=== PATIENT | female | born 1995 | race American Indian/Alaskan Native ===

== ENCOUNTER 2022-05-29 23:56 | Emergency (ER) | payer SELFPAY | END 2022-05-30 01:25 | disposition home or self-care (01) | LOC: JD.ED 23:56 | DX: S01.01XA Laceration without foreign body of scalp, initial encounter (principal); Y04.2XXA Assault by strike against or bumped into by another person, initial encounter | CPT/HCPCS: 70450; 70450-26; 99284 ==

== ENCOUNTER 2024-08-12 22:19 | Emergency (ER) | payer BC ==
[2024-08-13] MEDS: Naproxen 500 MG Tab PO ONE (00:28)
== END 2024-08-13 00:41 | disposition home or self-care (01) ==
LOC: JD.ED 22:19
DX: H66.91 Otitis media, unspecified, right ear (principal); J06.9 Acute upper respiratory infection, unspecified; Z79.899 Other long term (current) drug therapy
CPT/HCPCS: 87428-QW; 99283; A9270-GY

== ENCOUNTER 2024-08-18 12:14 | Emergency (ER) | payer BC ==
[2024-08-18 13:23] LABS: HEMATOCRIT 37.1 % (37.0-47.0); HEMOGLOBIN 12.6 gm/dl (12.0-16.0); MEAN CORPUSCULAR HEMOGLOBIN 27.7 pg (28.0-32.0); MEAN CORPUSCULAR VOLUME 81.5 fl (83.0-99.0); MEAN PLATELET VOLUME 10.4 fl (9.4-12.3); PLATELET COUNT,PLT 387 K/mm3 (150-400); RED BLOOD CELL COUNT 4.55 M/mm3 (4.10-5.30); WHITE BLOOD CELL COUNT,WBC 10.83 K/mm3 (3.9-11.3)
[2024-08-18 13:37] LABS: A/G RATIO 0.9 (1-2); ALANINE AMINOTRANSFERASE,ALT 36 U/L (14-59); ALBUMIN 3.8 g/dl (3.4-5.0); ALKALINE PHOSPHATASE 111 U/L (46-116); ANION GAP 12.9 (5-15); ASPARTATE AMNIOTRANSFERASE,AST 16 U/L (15-37); BILIRUBIN TOTAL 0.3 mg/dL (0.2-1.0); BLOOD UREA NITROGEN,BUN 14 mg/dL (7-18); BUN/CREATININE RATIO 17.5 (14-18); CALCIUM 9.1 mg/dL (8.5-10.1); CARBON DIOXIDE,CO2 29 mEq/L (21-32); CHLORIDE,CL 102 mEq/L (98-107); CREATININE 0.8 mg/dL (0.55-1.02); EST CRCL DRUG DOSING (CG) 85.06 mL/min; ESTIMATED GFR 102 mL/min (>60); GLUCOSE RANDOM 84 mg/dL (70-99); POTASSIUM,K 3.9 mEq/L (3.5-5.1); PROTEIN TOTAL,TP 8.2 g/dl (6.4-8.2); SODIUM,NA 140 mEq/L (136-145)
[2024-08-18 13:41] LABS: TROPONIN I HIGH SENSITIVITY < 4 pg/mL (<=51)
[2024-08-18 13:53] LABS: APPEARANCE,URINE CLEAR (Clear); BILIRUBIN,URINE NEGATIVE (Negative); COLOR,URINE YELLOW (Yellow); GLUCOSE,URINE NEGATIVE (Negative); KETONES,URINE TRACE (Negative); LEUKOCYTE ESTERASE,URINE NEGATIVE (Negative); NITRITE,URINE NEGATIVE (Negative); OCCULT BLOOD,URINE NEGATIVE (Negative); PH,URINE 6.5 (5.0-8.0); PROTEIN,URINE 2+ (Negative); UROBILINOGEN,URINE 0.2 (0.2-1.0)
[2024-08-18 14:17] LABS: BAND PERCENT MAN 1 % (0-10); BASOPHILS PERCENT MAN 0 (0.1-1.2); EOSINOPHILS PERCENT MAN 4 % (0.7-5.8); LYMPHOCYTES % ATYPICAL MANUAL 0 %; LYMPHOCYTES PERCENT MAN 32 % (20-40); MONOCYTES PERCENT MAN 0 % (2-10)
[2024-08-18 14:18] LABS: PLATELET COUNT ESTIMATE ADEQUATE
[2024-08-18] MEDS: Ketorolac 30 MG/ML SDV IVPUSH ONE (17:16)
[2024-08-18 17:27] LABS: BACTERIA,URINE FEW /hpf (FEW); MUCUS,URINE MODERATE /hpf (FEW); RBC,URINE 0-5 /hpf (0-5); WBC,URINE 0-5 /hpf (0-5)
== END 2024-08-18 19:18 | disposition home or self-care (01) ==
LOC: JD.ED 12:14
DX: R07.89 Other chest pain (principal); R51.9 Headache, unspecified; Z79.899 Other long term (current) drug therapy
CPT/HCPCS: 36415; 70450; 71046; 80053; 81001; 81025; 84484; 85007; 85027; 93005; 96374; 99285; J1885; 93010; 99284